=== PATIENT | male | born 1990 | race Hispanic/Latino ===

== ENCOUNTER 2022-10-08 10:20 | Emergency (ER) | payer OTHER ==
[~2022-10-08 10:20] MED LIST: ACETAMINOPHEN 325 MG TAB ONE; LIDOCAINE HCL 1% 20 ML VIAL ONE; TETANUS/DIPHTHERIA TOXOID [ADULT] 0.5 ML VIAL IM ONE
== END 2022-10-08 11:15 | disposition home or self-care (01) ==
LOC: EDH 10:20
DX: M79.642 Pain in left hand (principal); Z53.21 Procedure and treatment not carried out due to patient leaving prior to being seen by health care provider
CPT/HCPCS: 73130; 90714